=== PATIENT | female | born 1935 | race Caucasian/White ===

== ENCOUNTER → 2016-10-06 | Outpatient (CLI) | payer MEDICARE, BC | LOC: MW.CHFP 11:01 | PROVIDERS: ATTEND Physician Assistant | DX: R39.9 Unspecified symptoms and signs involving the genitourinary system (principal) | CPT/HCPCS: 81001; G0463 ==

== ENCOUNTER → 2016-10-15 | Outpatient (CLI) | payer MEDICARE, BC ==
--- NOTE | 2016-10-15 14:23 | CR ---
EXAMINATION: Lumbar spine HISTORY: Low back pain COMPARISON: None TECHNIQUE: AP and lateral views FINDINGS: There is a trace anterolisthesis of L3 on L4. Otherwise the lumbar spinal alignment appear s grossly normal. There is minimal wedging of the L4 vertebral body. Mild disc space narrowing is no nelly in the multiple levels. Marginal osteophytes are present. No fracture or acute osseous abnormali ty. Bone mineralization appears normal to slightly osteopenic. SI joints are symmetric. IMPRESSION: Moderate degenerative changes without acute findings.
== END ==
LOC: MW.CHFP 08:42
PROVIDERS: ATTEND Emergency Medicine
DX: M54.5 Low back pain (principal)
CPT/HCPCS: 72100; 72100-26; G0463